=== PATIENT | female | born 1985 | race Caucasian/White ===

== ENCOUNTER → 2023-05-04 | Emergency (ER) | payer MEDICAID ==
[~2023-05-04] VITALS: Ht 160 cm; Wt 44.5 kg
[~2023-05-04] MED LIST: HYDR-3965 PO; HYDROcodone/acetaminophen 5mg/325mg tablet PO ONE; LEVO100T46 PO; ONDA4TAB12 PO; morphine 10mg/ml inj. IM ONE; ondansetron 4mg rapidly disintigrating tab PO ONE
[2023-05-04 13:11] VITALS: TEMP 97.3
--- NOTE | 2023-05-04 13:54 | NUR ---
PT REPORTS TO THE ER WITH 10/10 RLQ PAIN. PT REPORTS HAVING CHRONIC PAIN IN THAT AREA FOR 13 YEARS. PT STATES SHE HAS HAD A LUMP THERE FOR LONG SHE CAN REMEMBER. PT DC FROM [facility] THIS MORNING. PT STATES " MY LAB WORK AT [facility] WAS PERFECT THIS MORNING".
[2023-05-04 14:23] LABS: BASOPHILS % (AUTO) 0.4 % (0-1); EOSINOPHILS # (AUTO) 0.1 X10'3 (0-0.9); EOSINOPHILS % (AUTO) 1.1 % (0-6); HEMATOCRIT 40.5 % (35.0-45.0); HEMOGLOBIN 13.9 g/dl (12.0-16.0); LYMPHOCYTES # (AUTO) 1.9 X10'3 (1.1-4.8); LYMPHOCYTES % (AUTO) 27.8 % (21-51); MEAN CORPUSCULAR HEMOGLOBIN 30.5 PG (27.0-31.0); MEAN CORPUSCULAR HGB CONC 34.4 g/dL (33.0-36.5); MEAN CORPUSCULAR VOLUME 88.5 FL (78-98); MEAN PLATELET VOLUME 7.7 FL (7.4-10.4); MONOCYTES # (AUTO) 0.5 X10'3 (0-0.9); NEUTROPHILS # (AUTO) 4.3 X10'3 (1.8-7.7); NEUTROPHILS % (AUTO) 63.7 % (42-75); PLATELET COUNT 192 X10'3 (140-440); RED BLOOD COUNT 4.58 X10'6 (4.20-5.60); RED CELL DISTRIBUTION WIDTH 13.1 % (11.5-14.5); WHITE BLOOD COUNT 6.7 X10'3 (4.5-11.0)
[2023-05-04 14:51] LABS: ALANINE AMINOTRANSFERASE 24 U/L (12-78); ALBUMIN/GLOBULIN RATIO 1.2 (1.1-1.5); ALKALINE PHOSPHATASE 78 IU/L (46-116); ANION GAP 4 (8-16); ASPARTATE AMINO TRANSFERASE 11 U/L (10-37); BILIRUBIN,TOTAL 0.7 MG/DL (0.1-1.0); BLOOD UREA NITROGEN 12 MG/DL (7-18); BUN/CREATININE RATIO 15.8 (10.0-20.0); CHLORIDE 107 MMOL/L (99-107); CREATININE 0.76 MG/DL (0.40-0.90); GLUCOSE 85 MG/DL (70-104); POTASSIUM 4.1 MMOL/L (3.5-5.1); SODIUM 138 MMOL/L (135-145); TOTAL CARBON DIOXIDE 27.4 MMOL/L (24-32); TOTAL PROTEIN 7.3 G/DL (6.4-8.2); eCRCL 70 ML/MIN; eGFR 85 ML/MIN
[2023-05-04 14:52] LABS: LIPASE 193 U/L (16-77)
--- NOTE | 2023-05-04 14:56 | NUR ---
. Addendum: 05/04/23 at 1457 by CEDRICK AMEND
[2023-05-04 15:31] LABS: URINE HCG NEGATIVE (NEG)
[2023-05-04 15:35] LABS: BILIRUBIN,URINE NEGATIVE (Neg); CLARITY,URINE CLOUDY (Clear); COLOR,URINE YELLOW (Yellow); GLUCOSE, URINE NEGATIVE (Neg); KETONES,URINE TRACE mg/dl (Neg); LEUKOCYTE ESTERASE ,URINE NEGATIVE (Neg); NITRITES, URINE NEGATIVE (Neg); OCCULT BLOOD,URINE TRACE-INTACT (Neg); PH,URINE 7.5 (4.8-8.0); PROTEIN,URINE TRACE mg/dl (Neg)
[2023-05-04 15:38] VITALS: BP 110/78; PULSE 68; RESP 18; O2SAT 98
[2023-05-04 15:47] LABS: UA COLLECTION TYPE CLN CATCH MIDSTREAM
[2023-05-04 15:53] LABS: BACTERIA,URINE FEW /HPF (Neg); MUCUS STRANDS FEW /LPF (Neg); SQUAMOUS EPITHELIAL CELL,UR FEW /LPF (FEW)
[2023-05-04 15:54] LABS: AMORPHOUS PHOSPHATES 2+
--- NOTE | 2023-05-04 18:59 | NUR ---
[employer] assessment reviewed by RN, approved by this RN.
== END | disposition home or self-care (01) ==
LOC: ER 12:35
DX: Z88.5 Allergy status to narcotic agent (principal); Z91.030 Bee allergy status
CPT/HCPCS: 36415; 76830; 76856; 80053; 81001; 81025; 83690; 85025; 87088; 93976; 96372; 99285; J2274